=== PATIENT | male | born 1945 | race Caucasian/White ===

== ENCOUNTER 2020-02-22 20:44 | Inpatient (IN) ==
[2020-02-22] MEDS ORDERED: CARDIZEM IV ONE ×2 (21:04→21:27)
[2020-02-22] MEDS ORDERED: CARDIZEM ONE (21:08)
[2020-02-22 21:20] LABS: BASO# 0.09 X1000 (0.0-0.2); BASO% 0.7 % (0.0-0.8); EOS# 0.01 X1000 (0.0-0.7); EOS% 0.1 % (0.0-10.0); HEMATOCRIT 32.5 % (42.0-52.0); HEMOGLOBIN 9.6 g/dL (14.0-18.0); IMM GRAN# 0.13 X1000 (0.0-0.04); LYMPH# 1.55 X1000 (1.2-3.4); LYMPH% 11.7 % (20.5-51.1); MCH 28.2 PG (27-31); MCHC 29.5 g/dL (33-37); MCV 95.6 FL (81-99); MONO# 1.57 X1000 (0.11-0.59); MONO% 11.8 % (1.7-9.3); NEUT# 9.94 X1000 (1.4-6.5); NEUT% 74.7 % (42.2-75.2); PLT 346 X1000 (130-400); RDW 18.3 % (11.5-14.5); WBC 13.29 X1000 (4.8-10.8)
--- NOTE | 2020-02-22 21:36 | Diag Imaging Result Doc PS360 ---
EXAM: CHEST-PORTABLE - 02/22/2020 HISTORY: SOB TECHNIQUE: Portable chest COMPARISON: 06/12/2016 FINDINGS: Heart size is normal. There are bilateral interstitial opacities. These may relate to inflammatory interstitial infiltrates or possibly progressive interstitial fibrosis. There is subsegmental atelectasis at left base. There is a possible tiny left pleural effusion. There is no evidence of pneumothorax. IMPRESSION: Bilateral interstitial opacities. These may relate to inflammatory interstitial infiltrates or possibly to progressive pulmonary fibrosis. Electronically signed by Amor Doll 02/22/2020 9:34 PM
[2020-02-22] MEDS ORDERED: NS 1,000 ML IV ONE (22:55)
[2020-02-22] MEDS ORDERED: ZOSYN 3.375 GM in NS 50 ML IV ONE (22:56)
[2020-02-22] MEDS ORDERED: VANCOMYCIN 1 GM/NS 1 GM/250 ML IVPB IV ONE (22:56)
[2020-02-22 23:32] LABS: CREATININE 1.2 mg/dL (0.7-1.2); POTASSIUM 4.4 mmol/L (3.5-5.1)
[2020-02-22] MEDS ORDERED: ASPIRIN PO ONE (23:43)
[2020-02-22] MEDS ORDERED: LASIX IV ONE (23:43)
[2020-02-23] MEDS ORDERED: ASPIRIN PO ONE (00:05)
[2020-02-23] MEDS ORDERED: CARDIZEM PO ONE (00:06)
--- NOTE | 2020-02-23 00:07 | PROVIDER DOCUMENTATION ---
This chart was entered by Aldo Pinedo Scribe, acting as scribe for Melody Langley MD. HPI-Respiratory General - General Chief Complaint: Shortness of Breath Stated Complaint: SOB Time Seen by Provider: 02/22/20 20:58 Source: patient Unable to obtain history due to:: urgency Allergies/Adverse Reactions: Patient Allergies Allergy/AdvReac Type Severity Reaction Status Date / Time morphine Allergy NAUSEA/VOMI Verified 02/22/20 22:26 TING Home Medications: Home Medication List Medication Instructions Recorded Confirmed Last Taken Type LISINOpril [Prinivil] 40 mg PO DAILY 02/09/15 06/12/16 06/12/16 History PRAVAstatin [Pravachol] 20 mg PO DAILY 02/09/15 06/12/16 06/12/16 History Digoxin [Lanoxin] 125 microgm PO DAILY #90 tablet 03/16/16 06/12/16 06/12/16 Rx Alprazolam [Xanax] 0.5 mg PO TID PRN PRN 05/12/16 06/12/16 06/12/16 History Hydrocodone/Acetaminophen [Lorcet 1 tab PO TID PRN 05/12/16 06/12/16 1 Week Ago History Plus 7.5-325 mg Tablet] ~06/05/16 Megestrol Acetate 40 mg PO TID 05/12/16 06/12/16 06/12/16 History Citalopram [Celexa] 20 mg PO DAILY 06/12/16 06/12/16 06/12/16 History Diltiazem [Cardizem] 30 mg PO TID 06/12/16 06/12/16 06/12/16 History Ondansetron HCl [Zofran] 4 mg PO 4XDAY PRN PRN 06/12/16 06/12/16 06/11/16 History Mirtazapine [Remeron] 7.5 mg PO QHS #30 tablet 06/14/16 Unknown Rx - History of Present Illness-Resp Nature of Presenting Problem: Pt is a 74 y/o M comes to the ED with SOB. When asked how long he has been SOB he states "for years". Pt O2 SAT once is the room was low 40's. He reports, in between breaths, he has no hx. A Report is pt came to the ED by an ICU nurse from a near [facility] and told the pt was discharge yesterday from a Hospital in [place]. When asking the pt he has no clue why he was in the hospital. History very limited by acuity of patient's condition Severity in ED: reports: severe Onset/Duration: reports: unsure Review of Systems - Adult - REVIEW OF SYSTEMS - ADULT ROS:: limited per condition Constitutional: denies: chills, fever Respiratory: reports: shortness of breath Past History - Adult - PAST MEDICAL HISTORY-ADULT Review of Records: reports: Old Records Reviewed, Nursing Assessment Review, Medications Reviewed, Social history reviewed & non-contributory. Major Childhood Illnesses: reports: denies history Cardiovascular: reports: CAD Respiratory: reports: denies history Gastrointestinal: reports: ulcer Genitourinary: reports: denies history Musculoskeletal: reports: neck/back injury Neurological: reports: denies history Endocrine/Immune: reports: denies history Other Conditions: reports: denies history - PRIOR SURGERIES/PROCEDURES Surgical/Procedure History: reports: cholecystectomy, bowel surgery, orthopedic (extremity), back/neck (x9), gastric bypass - IMMUNIZATION STATUS Childhood Immunizations: See Nurse Assessment Flu Vaccine: See Nurse Assessment - FAMILY HISTORY Family History: reviewed, not pertinent Physical Exam-General - PHYSICAL EXAM-ADULT Initial Vital Signs Reviewed: Yes - CONSTITUTIONAL General Appearance: alert (Pt is confused), severe distress, thin. negative: appears well (Pt working to breathe) - EYES Eyes: PERRL/EOMI, pink conjunctivae - HEAD, EARS, NOSE, MOUTH & THROAT HENMT: moist mucous membranes. negative: angioedema - NECK Neck: non-tender, full range of motion - RESPIRATORY Respiratory: respiratory distress, decreased breath sounds, accessory muscle use , increased rate, other (Pt intial O2 SAT was in the low 40's on a NC and after switching to a nonrebreather improves to the mid 90's) - CARDIOVASCULAR Cardiovascular: no edema, tachycardia - GASTROINTESTINAL (ABDOMEN) Abdominal Exam: soft, hernia (large umbilical), other (well healed sugrical scar) - MUSCULOSKELETAL Extremity: no pedal edema, pelvis stable. negative: deformity, erythema - SKIN Integumentary: normal color, normal turgor, warm/dry - NEUROLOGIC Neurologic: grossly normal, no motor/sensory deficits - PSYCHIATRIC Psych/Mental Status: normal mood/affect, oriented x 3. negative: normal thought content (mildly confused) Progress - PLAN OF CARE/RESULTS Progress/Plan/Lab Results: Vital Signs - 8 hr 02/22/20 21:05 02/22/20 21:56 02/22/20 23:14 Temperature 98.7 F Pulse Rate 122 H 97 H 107 H Respiratory Rate 20 25 H 22 Blood Pressure 106/58 112/70 107/77 O2 Sat by Pulse Oximetry 42 L 97 95 02/22/20 21:48 Influenza Screen - Final Nasopharyngeal Laboratory Results - last 24 hr 02/22/20 02/22/20 02/22/20 21:06 21:06 21:06 WBC 13.29 H RBC 3.40 L Hgb 9.6 L Hct 32.5 L MCV 95.6 MCH 28.2 MCHC 29.5 L RDW Std Deviation 18.3 H Plt Count 346 MPV 11.0 H Immature Gran % (Auto) 1.0 H Neut % (Auto) 74.7 Lymph % (Auto) 11.7 L [place] % (Auto) 11.8 H Eos % (Auto) 0.1 Baso % (Auto) 0.7 Immature Gran # (Auto) 0.13 H Neut # (Auto) 9.94 H Lymph # (Auto) 1.55 [place] # (Auto) 1.57 H Eos # (Auto) 0.01 Baso # (Auto) 0.09 Sodium Potassium Chloride Carbon Dioxide Anion Gap BUN Creatinine Estimated GFR/1.73 m2 BUN/Creatinine Ratio Glucose Calculated Osmolality Calcium Troponin T High Sens 40 H Lxk-N-Tvutmweohfx Pept 2466 H Plasma Lactate 02/22/20 02/22/20 21:06 21:58 WBC RBC Hgb Hct MCV MCH MCHC RDW Std Deviation Plt Count MPV Immature Gran % (Auto) Neut % (Auto) Lymph % (Auto) [place] % (Auto) Eos % (Auto) Baso % (Auto) Immature Gran # (Auto) Neut # (Auto) Lymph # (Auto) [place] # (Auto) Eos # (Auto) Baso # (Auto) Sodium 141 Potassium 4.4 Chloride 105 Carbon Dioxide 14 L Anion Gap 22 BUN 24 H Creatinine 1.2 Estimated GFR/1.73 m2 59 BUN/Creatinine Ratio 20 Glucose 185 H Calculated Osmolality 290 Calcium 9.0 Troponin T High Sens Xkh-C-Vvzhbgeshtj Pept Plasma Lactate 1.6 Orders Category Date Time Status NEWS Score >or=5:Order NEWS Bundle S.O. NOW Care 02/22/20 21:47 Active cxr [CHEST-PORTABLE] [RAD] Stat Exams 02/22/20 21:01 Completed BLOOD CULTURE [BLDCUL] Stat Lab 02/22/20 23:15 Received BMP [BASIC METABOLIC PANEL] [CHEM] Stat Lab 02/22/20 21:06 Completed BNP [PRO B-NATRIURETIC PEPTIDE] Stat Lab 02/22/20 21:06 Completed CBC WITH ELECTRONIC DIFF [HEME] Stat Lab 02/22/20 21:06 Completed INFLUENZA SCREEN A/B Stat Lab 02/22/20 21:48 Completed LACTATE, PLASMA [CHEM] Stat Lab 02/22/20 21:58 Completed MISCELLANEOUS TEST-LAB [RF] Stat Lab 02/22/20 21:16 Uncollected TROPONIN T HIGH SENSITIVITY Stat Lab 02/22/20 21:06 Completed 0.9% Sodium Chloride Inj [Ns] 1,000 ml Med 02/22/20 22:55 Discontinued IV 999 mls/hr Aspirin Med 02/22/20 23:43 Discontinued 325 mg PO NOW ONE Diltiazem [Cardizem] Med 02/22/20 21:04 Discontinued 10 mg IV NOW ONE Diltiazem [Cardizem] Med 02/22/20 21:27 Discontinued 20 mg IV NOW ONE Diltiazem [Cardizem] Med 02/22/20 21:08 Discontinued 25 mg .ROUTE .STK-MED ONE Furosemide [Lasix] Med 02/22/20 23:43 Discontinued 40 mg IV NOW ONE Piperacillin/Tazobactam [Zosyn] 3.375 gm Med 02/22/20 22:56 Discontinued 0.9% Sodium Chloride Inj [Ns] 50 ml IV NOW Vancomycin 1 gm/Ns Med 02/22/20 22:56 Discontinued 1 gm in 250 ml IV NOW EKG [EKG] Stat Ther 02/22/20 20:59 Ordered dyspena with marked hypoxia and increased work of breathing. Improved with 100% oxygen by NRB. A-flutter with RVR on monitor will treat and will further evaluate for causes including but not limited to chf, pna, covid-19, acs. Result Diagrams: 02/22/20 21:06 02/22/20 21:06 - REASSESSMENT Reassessment #1 Status: improving (tachycardia and dyspnea improving, HR 100, elevated troponin and BNP and diffuse pulmonary edema with scattered infiltrates on CXR. Treated with vanco, zosyn, aspirin, and lasix. Records from [place] reviewed and pt was admitted with pna and chf, had 1 negative covid-19 test. Will admit. Discussed case with Dr. Lynne, hospitalist who will see and admit pt.) - EKG 1 Time of EKG reading by physician:: 21:02 EKG Read and Signed by:: Melody Langley EKG Interpretation (*Must complete 3 of following elements*): Abnormal Rate: 122 Rhythm: Atrial flutter with variable AV block Comments: Nonspecific T wave abnormality Departure - Departure Date of Disposition Decision: 02/23/20 Time of Disposition Decision: 00:04 DIAGNOSIS: Elevated troponin CHF exacerbation Qualifiers: Heart failure type: unspecified Qualified Code(s): I50.9 - Heart failure, unspecified Pneumonia Qualifiers: Pneumonia type: due to unspecified organism Laterality: unspecified laterality Lung location: unspecified part of lung Qualified Code(s): J18.9 - Pneumonia, unspecified organism Disposition: ADMITTED INPATIENT 09 Certified Medical Emergency: Emergent Condition: Fair - Critical Care Note This patient required my direct & personal management of CC.: Yes Total Time (mins): 30 Critical Care Statement: This patient required my direct personal management to treat or rule out processes, the absence of which, could potentiallly result in sudden, clinically significant life or limb threatening deterioration. Attestation - Physician/ BENJIE Attestation Patient care was provided by Advanced Practice Provider:: No The physician spent face to face time with patient:: Yes Advanced Practice Provider documentation review:: Supervising physician onsite and consulted in the evaluation and care of this patient. The physician did have a face to face encounter with the patient. This chart was documented by the indicated scribe, (Aldo Pinedo Scribe) and accurately reflects the services I performed and decisions made by , Melody Langley MD, as attested by the provider's signature.
[2020-02-23] MEDS ORDERED: LANOXIN IV ONE (00:20)
[2020-02-23] MEDS ORDERED: VANCOMYCIN IV PER PHARMACY MISC SCH (01:00)
[2020-02-23 01:25] LABS: URINE SOURCE CATH
[2020-02-23] MEDS: DEMEROL IV PRN ×4 (01:28→13:45)
[2020-02-23 01:40] LABS: BILIRUBIN URINE NEGATIVE (NEGATIVE); BLOOD URINE TRACE (NEGATIVE); COLOR STRAW; GLUCOSE URINE NEGATIVE (NEGATIVE); KETONE URINE NEGATIVE (NEGATIVE); LEUKOCYTES URINE NEGATIVE (NEGATIVE); NITRITE URINE NEGATIVE (NEGATIVE); PROTEIN URINE NEGATIVE (NEGATIVE); SP GRAVITY URINE 1.008; TURBIDITY URINE CLEAR (CLEAR); UR EPITHELIAL CELLS <10 /HPF (<10); URINE BACTERIA NEGATIVE /HPF; URINE RBC <10 /HPF (<10); URINE WBC <10 /HPF (<10); UROBILINOGEN URINE NORMAL (NORMAL)
[2020-02-23] MEDS: MAXIPIME 1 GM in NS 50 ML IV SCH ×2 (02:42→13:04)
[2020-02-23] MEDS ORDERED: VENTOLIN HFA INH PRN (03:19)
[2020-02-23] MEDS ORDERED: VANCOMYCIN 750 MG in NS 250 ML IV ONE (04:00)
--- NOTE | 2020-02-23 05:23 | HISTORY AND PHYSICAL ---
PRIMARY CARE PROVIDER: Carlos Hyman M.D. CHIEF COMPLAINT: Shortness of breath and umbilical pain. HISTORY OF PRESENT ILLNESS: Mr. Hannah is a 74-year-old male with a past medical history of COPD, ongoing tobacco use, atrial fibrillation, hypertension, dyslipidemia, chronic ulcers and multiple dilatations in the past, who came to the ED complaining of increase in shortness of breath. Initial O2 saturation was in the low 40s. He had improvement of his O2 saturations while placed on a non-rebreather breather, and was noted to be in atrial flutter with RVR. He was just discharged from [facility] on 02/20/2020 after he was admitted for respiratory failure and suspected COVID, which was negative. He also had some pulmonary edema and pneumonitis. He is currently being retested for COVID given a dose of IV Lasix as well as several doses of IV Cardizem and broad-spectrum antibiotics. We will monitor him on PVC. PAST MEDICAL HISTORY: COPD, paroxysmal atrial fibrillation, hypertension dyslipidemia, chronic ulcers, multiple dilatations in the past, and continues to use tobacco. Off of his echo from [place], looks like some grade 1 diastolic dysfunction with an EF of 60%. PAST SURGICAL HISTORY: Hernia repair, dilatation, multiple back surgeries, rotator cuff surgery, enterectomy, vaginotomy and Billroth I. Anastomosis site leak that underwent a revision with Billroth II and a J tube that has been removed. SOCIAL HISTORY: The patient reports that he lives in [facility]. He used to smoke 2 packs of cigarettes per day for many years. Recently, he is down to 5 to 6 cigarettes per day. No alcohol or illicit drug use. FAMILY HISTORY: Reviewed and noncontributory. ALLERGIES: Morphine causes nausea and vomiting. MEDICATIONS: Home medications are being compiled. REVIEW OF SYSTEMS: The patient's main complaint was his hernia pain. It took a lot of coaching to get the reason why he was brought to the hospital, which ultimately was for shortness of breath, but then he said he could no longer take the pain in his abdomen though he did report that the shortness of breath increased last night. He is currently denying any fever, chills, chest pain, shortness of breath, palpitations, nausea, vomiting, or diarrhea. PHYSICAL EXAMINATION: VITAL SIGNS: Temperature 98.7 degrees, heart rate 105, respirations 26, blood pressure 108/73, and O2 is 95% on nonrebreather. GENERAL: Mr. Hannah is a 74-year-old gentleman who is complaining of abdominal pain, sitting up in the bed in no acute distress. HEENT: Atraumatic, normocephalic. PERRL. NECK: Supple. Trachea midline. CARDIOVASCULAR: S1, S2 appreciated. No murmurs, gallops, or rubs noted. RESPIRATORY: Lung sounds with crepitus throughout all lung bates. ABDOMEN: Tender over the ventral hernia. Positive bowel sounds. SKIN: Warm, dry and intact. NEUROLOGIC: No focal deficits noted. DIAGNOSTIC DATA: Chest x-ray shows bilateral interstitial opacities that may relate to inflammatory interstitial infiltrates or possibility to progressive pulmonary fibrosis. EKG showed atrial flutter with RVR, rate of 160s. LABORATORY DATA: CBC: White count is 13, hemoglobin and hematocrit 9.6 and 32.5, and platelet count is 346,000. Chemistries: Sodium 141, potassium 4.4, BUN 24, creatinine 1.2, and blood glucose is 185. Troponin is 40. ProBNP was 2466. Plasma lactate was 1.6. ASSESSMENT AND PLAN: 1. Hospital-acquired pneumonia. Patient just was recently discharged from [facility] where he was treated for pneumonitis and ruled out for COVID. We will continue with broad-spectrum antibiotics with vancomycin and cefepime, albuterol inhalers, and aggressive pulmonary toilet. 2. COVID 19 rule out again. Placed in proper isolation precautions. 3. Atrial flutter with rapid ventricular response. The patient's rate is now in the low 100's after a couple doses of IV Cardizem and p.o. Cardizem. 4. Mild diastolic heart failure exacerbation. Patient was given a dose of Lasix. We will do strict intakes and outputs, and daily weights. Recheck an echo in the morning. Consult Cardiology. We will do 2 more doses of IV Lasix at 20 mg. 5. Mild elevation of troponin. Patient is not currently complaining of any chest pain. We will continue to trend with 2 more sets. 6. Acute respiratory failure with hypoxemia noted upon arrival. His O2 saturation was 42 on room air, recovered to 100% on nonrebreather. We do not have any ABGs to correlate with carbon dioxide of 14, and anion gap of 22. 7. COPD. We will continue with supplemental O2. Albuterol inhalers given the patient is being tested for COVID. Continue supplemental O2. 8. Continued tobacco use and abuse. We will continue with smoking cessation and education. 9. Pulmonary fibrosis. It was unclear if the patient had a lead front desk agent that he followed. 10 Ventral hernia. The patient was complaining of pain. It was easily reducible. We can have him follow up with General Surgery or consult when the patient is more stable. 11. Further recommendation to follow physician evaluation, laboratory and diagnostic data. Dictated by DENNY Black for Geremias Lynne MD cc: MD Carlos Serna MD MTDGarcia
[2020-02-23] MEDS: VENTOLIN HFA INH SCH ×4 (06:01→21:26)
[2020-02-23 06:32] LABS: AGAP 19; ALB/GLOB RATIO 0.8; ALBUMIN 2.8 g/dL (3.5-5.0); ALKALINE PHOSPHATASE 132 U/L (32-122); BUN 21 mg/dL (8-22); CALCIUM 8.2 mg/dL (8.8-10.2); CHLORIDE 107 mmol/L (98-107); COSMO 292; CREATININE 0.9 mg/dL (0.7-1.2); ESTIMATED GFR > 60; GLUCOSE 113 mg/dL (70-104); GOT 26 U/L (10-34); GPT 14 U/L (10-44); INR 1.98; MAGNESIUM 1.8 mg/dL (1.5-2.7); POTASSIUM 3.8 mmol/L (3.5-5.1); SODIUM 145 mmol/L (136-145); TCO2 19 mmol/L (25-35); TOTAL BILIRUBIN 0.34 mg/dL (0.20-1.00); TOTAL PROTEIN 6.5 g/dL (6.3-8.3)
[2020-02-23 06:33] LABS: PTT 53.7 Seconds (22.3-41.8)
[2020-02-23 06:42] LABS: BASO# 0.03 X1000 (0.0-0.2); BASO% 0.2 % (0.0-0.8); EOS# 0.01 X1000 (0.0-0.7); EOS% 0.1 % (0.0-10.0); HEMATOCRIT 30.5 % (42.0-52.0); HEMOGLOBIN 9.5 g/dL (14.0-18.0); LYMPH# 1.84 X1000 (1.2-3.4); LYMPH% 15.1 % (20.5-51.1); MCH 29.5 PG (27-31); MCHC 31.1 g/dL (33-37); MCV 94.7 FL (81-99); MONO# 1.28 X1000 (0.11-0.59); MONO% 10.5 % (1.7-9.3); MPV 11.5 FL (7.4-10.4); NEUT# 9.04 X1000 (1.4-6.5); NEUT% 74.1 % (42.2-75.2); PLT 333 X1000 (130-400); RBC 3.22 XMIL (4.7-6.1)
--- NOTE | 2020-02-23 07:52 | EKG Report ---
Test Performed on : 02/23/2020 07:12:18 AM Test Reason : a-flutter Blood Pressure : / mmHG Vent. Rate : 097 BPM Atrial Rate : 337 BPM P-R Int : 000 ms QRS Dur : 084 ms QT Int : 296 ms P-R-T Axes : 000 069 -82 degrees QTc Int : 375 ms Atrial flutter. with variable AV block. with premature ventricular or aberrantly conducted complexes. ST & T wave abnormality, consider inferolateral ischemia Abnormal ECG When compared with ECG of 22-FEB-2020 21:01, (Unconfirmed) T wave inversion now evident in Lateral leads Confirmed by Becca COWART, Calvin Haji ([id number]) on 02/23/2020 9:26:22 AM
--- NOTE | 2020-02-23 07:56 | EKG Report ---
Test Performed on : 02/22/2020 9:01:32 PM Test Reason : SOB Blood Pressure : / mmHG Vent. Rate : 122 BPM Atrial Rate : 315 BPM P-R Int : 000 ms QRS Dur : 090 ms QT Int : 310 ms P-R-T Axes : 000 049 -24 degrees QTc Int : 441 ms Atrial flutter. with variable AV block. Nonspecific T wave abnormality Abnormal ECG Unconfirmed Result
[2020-02-23] MEDS: ELIQUIS PO SCH ×2 (09:07→21:31)
[2020-02-23] MEDS: LANOXIN PO SCH (09:08)
[2020-02-23] MEDS: CARDIZEM CD PO SCH (09:08)
[2020-02-23] MEDS: LASIX IV SCH ×2 (09:08→21:31)
--- NOTE | 2020-02-23 09:54 | CARDIOLOGY CONSULTATION ---
DATE: 02/23/2020 CHIEF COMPLAINT: Shortness of breath. HISTORY OF PRESENT ILLNESS: Mr. Hannah is a 74-year-old, white male with a history of atrial flutter, atrial fibrillation, previously seen by Dr. Garcia in 01/2020. The patient has had frequent hospitalizations, originally hospitalized in December at [facility] for what sounds like pneumonia. Subsequently had a readmission to [place], with discharge just a couple of days ago. Again, this was secondary to pneumonia. The patient was found by his neighbor yesterday, very short of breath. Apparently had not improved since discharge from [place]. He has had productive cough of brownish sputum. He denies any fevers. The patient denies any pain or heart racing. No chest pain. No orthopnea. PAST MEDICAL HISTORY: Significant for: 1. Atrial flutter/paroxysmal atrial fibrillation. Last visit in 01/2020, he was in sinus rhythm per Dr. Garcia. The patient was not on any antiarrhythmics at that time, but was taking diltiazem as well as Eliquis. 2. COPD/pulmonary fibrosis with previous tobacco use. 3. Hypertension. 4. Hyperlipidemia. 5. Gastric ulcers. 6. Chronic pain. SOCIAL HISTORY: He used to smoke 2 packs per day for many years, and currently smokes around 5 to 6 cigarettes per day. FAMILY HISTORY: Hypertension. REVIEW OF SYSTEMS: A 10-system review of systems is negative, except for those mentioned in the HPI. PHYSICAL EXAMINATION: Vital Signs: He is afebrile, heart rates are in the 80s to low 100s, blood pressure 121/67, he is on 94% with a nonrebreather. General: He is in no acute distress. HEENT: Oropharynx is moist. Poor dentition. Eye examination shows pink conjunctivae, white sclerae. Neck: No obvious thyromegaly or thyroid tenderness. Cardiovascular: He sounds to be in an irregularly irregular rhythm. Monitor currently shows atrial fibrillation. He has no lower extremity edema. He has warm and well-perfused extremities. Chest: Coarse breath sounds diffusely. No increased work of breathing. Abdomen: Soft, nontender, nondistended. No obvious organomegaly. Skin: Warm and dry throughout without any rashes. Neurological: He is moving all extremities well. He has no lateralizing deficits. PERTINENT DATA: His original EKG on 02/22/2020 at 2101 shows what appears to be atrial flutter, variable conduction, rate of 122 beats per minute, no ischemic changes. His subsequent EKG occurring on 02/23/2020 at 7:12 shows atrial flutter, rate of 97 beats per minute. He had a chest x-ray performed that demonstrates bilateral interstitial opacities, possible inflammatory infiltrates versus pulmonary fibrosis. His lab data shows white count 12.2, hematocrit 30, his platelet count is 333,000. His INR is 1.98. His sodium is 145, potassium 3.8, his BUN is 21, creatinine 0.9. His proBNP was 2466 on presentation, 4147 today. His troponin was 40, today it is 30. Urinalysis was reviewed. His lactate was 1.6. ASSESSMENT: Mr. Hannah is a 74-year-old gentleman who presented with respiratory failure, most likely pneumonia, found to be in atrial flutter. PLAN: At this point, I agree with rate control. Continue on Eliquis. We will manage him for now with rate control, and may pursue caodaism of sinus rhythm in the near future. I would not do that currently given his respiratory issues. He is currently on diuretics, which I agree with. I would not re-echo the patient given that he had a normal echocardiogram as far as his ejection fraction just a few days ago in [place]. I do not believe repeating that study presently is indicated. cc: Andre Molina MD [facility]
[2020-02-23 11:09] LABS: T4 7.79 ug/dL (4.60-12.00); TSH 1.15 uIUmL (0.27-4.20)
[2020-02-23] MEDS ORDERED: OFIRMEV 1000 MG/ISOTONIC SOLN 1,000 MG/100 ML BOTTLE IV PRN (12:01)
--- NOTE | 2020-02-23 13:33 | PROGRESS NOTE ---
DATE: 02/23/2020 SUBJECTIVE: I have seen and examined Mr. Hannah today. Mr. Hannah is a 74-year-old gentleman who was admitted early this morning because of hypoxemia I understand. He tells me that he was having difficulty breathing. He could not get his breath and I understand upon arrival, his O2 saturation was 42%. He was place on a non-rebreather and that has significantly improved his saturation. This morning, he refers to be doing well. He is more concerned about pains in his abdomen. Upon presentation, he was also found to be in atrial flutter with variable blocks. Cardiology has evaluated him today. OBJECTIVELY: Current Vital Signs: Blood pressure 108/64, pulse of 95, respirations 28, temperature is 98.3 degrees. General: Mr. Hannah is a 74-year-old elderly male. He is in bed, no distress. HEENT: Mucosa is pink and moist. Anicteric. Acyanotic. Neck: Neck is supple. There is no JVD. Chest: Air entry was bilaterally reduced. There was some fine end inspiratory crackles, but no rhonchi. Cardiovascular: Regular rate and rhythm. No murmurs, no rubs, no gallops. GI: Abdomen soft. There is an old midline surgical scar with hernia. There is some tenderness palpating the hernia at the site, but it is very reducible. Bowel sounds are present. Extremities: No pedal edema. GEAR ROOM KEEPER: Patient is awake, alert, oriented. There is no focal deficit. LABORATORY DATA: WBC is 12.20, hemoglobin of 9.5, platelet count of 333. Chemistry is also reviewed and is completely unremarkable. The patient's Pro-BNP is 447. IMAGING STUDIES: Chest x-ray did show bilateral interstitial opacities. This may be inflammatory interstitial infiltrate or possible progression of pulmonary fibrosis. ASSESSMENT: 1. Acute hypoxemic respiratory failure. The patient is on a non-rebreather, currently O2 saturation has improved. We are going to continue monitoring. His hypoxemia could be due to chronic obstructive pulmonary disease exacerbation versus pneumonia vs pulmonary fibrosis. 2. Bilateral multifocal infiltrate concerning for pneumonia versus pulmonary fibrosis. The patient is on IV antibiotics. 3. Atrial flutter with variable conduction in rapid ventricular response. The patient is on Cardizem. Currently looks like the rate is better controlled. Has been evaluated by cardiology. 4. History of chronic obstructive pulmonary disease with chronic hypoxemia on supplemental home oxygen. 5. Ongoing tobacco use and abuse. Patient has been counseled. 6. Mid epigastric incisional hernia noted. 7. Elevated Pro-BNP concerning for tachyarrhythmia-induced heart failure most likely with preserved ejection fraction. Cardiology is on board. At this point, we are going to continue with the rate control strategy that has been instituted. PLAN: In general, I think Mr. Hannah is doing a lot better. He is currently more concerned about his abdominal discomfort and more pain medicine. Apparently, he follows up with Dr. Oviedo at his pain clinic. We will continue with the current antimicrobial therapy, antibiotics, diuretics, rate control strategy, and anticoagulation. I have added also p.o. prednisone for the possible chronic obstructive pulmonary disease exacerbation. cc: Andrey Paniagua MD [facility]
[2020-02-23] MEDS ORDERED: NORCO-7.5 PO PRN ×2 (17:23→17:26)
[2020-02-23] MEDS ORDERED: BLISTEX MEDICATED BERRY LIP BALM TOP PRN (22:00)
[2020-02-23] MEDS ORDERED: XANAX PO ONE (22:18)
[2020-02-24] MEDS: NORCO-7.5 PO PRN ×2 (02:11→08:14)
[2020-02-24] MEDS: MAXIPIME 1 GM in NS 50 ML IV SCH ×2 (02:11→15:39)
[2020-02-24] MEDS: VENTOLIN HFA INH SCH ×4 (03:26→21:00)
[2020-02-24] MEDS: VANCOMYCIN 1 GM/NS 1 GM/250 ML IVPB IV SCH (05:44)
[2020-02-24 06:01] LABS: HEMATOCRIT 35.8 % (42.0-52.0); MCH 28.4 PG (27-31); MCHC 30.7 g/dL (33-37); MCV 92.5 FL (81-99); MPV 11.3 FL (7.4-10.4); RBC 3.87 XMIL (4.7-6.1); RDW 17.7 % (11.5-14.5); WBC 13.76 X1000 (4.8-10.8)
[2020-02-24 06:22] LABS: AGAP 15; BUN 24 mg/dL (8-22); CALCIUM 8.9 mg/dL (8.8-10.2); CHLORIDE 100 mmol/L (98-107); COSMO 286; CREATININE 0.9 mg/dL (0.7-1.2); ESTIMATED GFR > 60; GLUCOSE 107 mg/dL (70-104); PHOSPHORUS 2.6 mg/dL (2.7-4.5); POTASSIUM 3.1 mmol/L (3.5-5.1); SODIUM 141 mmol/L (136-145); TCO2 26 mmol/L (25-35)
--- NOTE | 2020-02-24 06:41 | Diag Imaging Result Doc PS360 ---
EXAM: CHEST-PORTABLE HISTORY: dyspnea TECHNIQUE: Single view COMPARISON: 02/22/2020 FINDINGS: There are diffuse bilateral infiltrates. No cardiomegaly. Questionable tiny left effusion. The overall appearance is similar to the prior exam. IMPRESSION: Stable chest Electronically signed by Manav Allen 02/24/2020 6:38 AM
[2020-02-24] MEDS ORDERED: LASIX IV ONE (07:50)
[2020-02-24] MEDS ORDERED: LEVSIN-SL SL PRN (07:52)
[2020-02-24] MEDS: KLOR-CON PO SCH ×2 (07:55→11:33)
[2020-02-24] MEDS: BUSPAR PO SCH ×2 (07:55→08:29)
[2020-02-24] MEDS: CARDIZEM CD PO SCH ×2 (07:55→08:29)
[2020-02-24] MEDS: NEURONTIN PO SCH ×2 (07:56→08:30)
[2020-02-24] MEDS: ELIQUIS PO SCH ×3 (07:56→21:34)
[2020-02-24] MEDS: LANOXIN PO SCH ×2 (07:56→08:30)
[2020-02-24] MEDS: LEXAPRO PO SCH ×2 (07:56→08:30)
[2020-02-24] MEDS: POTASSIUM CHLORIDE 20 MEQ/SWI 20 MEQ/100 ML IVPB IV SCH ×2 (07:57→09:24)
--- NOTE | 2020-02-24 08:40 | PROGRESS NOTE ---
DATE: 02/24/2020 INTERVAL HISTORY: Mr. Hannah remained tachycardic with heart rate of 102, and he remained hypoxic overnight despite being -1.8 L. His hypokalemia is currently being repleted. He appeared anxious in the morning time. No other acute overnight events. SUBJECTIVE: Mr. Hannah is anxious and says he is feeling significantly weak and that he needs IV fluids. He denies any chest pain. He is feeling short of breath. He is occasionally coughing. He denies any nausea or vomiting. REVIEW OF SYSTEMS: Positive for dysphagia. Positive for abdominal cramps. Positive for weakness. OBJECTIVE: Vital Signs: Currently, temperature 98.4 degrees, pulse 110, respiratory rate 24, blood pressure 129/85, he is saturating 100% on nonrebreather mask. General: In distress because of shortness of breath. HEENT: Oral cavity is moist. Lungs: He has diminished air entry, bilateral inframammary region, as well as infra-axillary region, with inspiratory crackles. No wheezes. Cardiovascular: S1, S2 normal. Irregularly irregular. No murmur, rub, or gallop. Abdomen: Soft, nontender. He has a laparotomy scar of previous abdominal surgery. : He has urine catheter. Extremities: No lower extremity edema. Neurologic: He is alert. He is oriented x3. LABORATORY DATA: WBC 13.7, hemoglobin 11, platelets 392,000. Potassium 3.1, BUN 24, creatinine 0.9. Phosphorus 2.6, magnesium 1.9. His proBNP has elevated to 4600. MICROBIOLOGY: No new positive data. IMAGING: Chest x-ray suggests that he continues to have bilateral lung infiltrate. MEDICATIONS: He is on acetaminophen, hydrocodone, albuterol sulfate inhaler, apixaban, buspirone, cefepime, digoxin, diltiazem, Lexapro, gabapentin, Levsin, vancomycin, and potassium. ASSESSMENT AND PLAN: 1. Acute hypoxic respiratory failure due to bilateral lung infiltrate, likely a combination of pulmonary fibrosis, chronic obstructive pulmonary disease, superimposed with pneumonia. There could also be a component of acute pulmonary edema. Continue inhaled albuterol, intravenous vancomycin, intravenous cefepime. Add intravenous Lasix. Follow up chest x- ray in the future as necessary. I will consult Pulmonology for further recommendation. He is on 100% nonrebreather right now, and his respiratory status appears tenuous. He was counseled about smoking cessation. Follow up COVID results. 2. Atrial flutter with variable atrioventricular block. Currently, heart rate is reasonably controlled on diltiazem, digoxin, and Eliquis, which I will continue. His echocardiogram at an outside hospital had an ejection fraction of 60%, though official reports are pending. Appreciate Cardiology's recommendation. 3. Sepsis due to bilateral lung multifocal pneumonia. Continue intravenous antibiotics as above. 4. Others. Continue buspirone and Lexapro for anxiety; gabapentin for chronic neuropathic pain; replete hypokalemia and hypomagnesemia as necessary. 5. Disposition. Mr. Hannah's condition is critical. 35 minutes of critical care time was spent taking care of this patient. I had a discussion with him about his critical condition, including suspected pulmonary fibrosis, which could be irreversible, high oxygen requirements. I asked him about his future wishes, and he explicitly mentioned that he would not want any chest compressions or intubations, so his code status is DO NOT RESUSCITATE level 1. I will consult Palliative Care for further goals of care discussion. I tried to reach out to his and sister, whose contacts are listed in the computer. However, they did not sweet pickle maker, and there was no option to leave a voice message. I will continue to try and reach out to them in the future. cc: MD SUZANNE Kunz
[2020-02-24] MEDS ORDERED: BUSPAR PO SCH (09:00)
[2020-02-24] MEDS ORDERED: NEURONTIN PO SCH (09:00)
--- NOTE | 2020-02-24 11:30 | PROGRESS NOTE ---
DATE: 02/24/2020 SUBJECTIVE: Mr. Hannah had expressed to the nurse that he wanted to go home on hospice. Palliative Care team has been consulted and is currently working on setting that up. I think Mr. Hannah has had repeated hospitalizations recently and appears to have pulmonary fibrosis. He received intravenous Lasix with negative almost 2 L of urine yesterday. Despite that, his oxygen need did not improve and he remained on 100% non-rebreather mask. cc: Adan Gonzalez MD
[2020-02-24] MEDS ORDERED: DILAUDID ONE (12:05)
[2020-02-24] MEDS: DILAUDID IV PRN ×3 (12:10→23:34)
--- NOTE | 2020-02-24 13:11 | CARDIOLOGY PROGRESS NOTE ---
DATE: 02/24/2020 SUBJECTIVE: Mr. Hannah is weak today, continues to be short of breath. There have been discussions that he has had today regarding wanting to go home on hospice. He still on respiratory isolation. PHYSICAL EXAMINATION: The patient is afebrile. His heart rate is in the 90s to low 100s. Blood pressure 117/81. General: He is in no acute distress. Cardiovascular: He is in an irregularly irregular rhythm. He has no murmurs. He has no lower extremity edema. His chest exam has coarse breath sounds diffusely, poor inspiratory effort. His abdomen is soft, nontender. PERTINENT DATA: White count 13.7, hematocrit 36. Sodium 141, potassium is 3.1, BUN 24, creatinine 0.9. His proBNP is 4603, which is relatively stable from yesterday. His Is and Os notably have been negative around 3 L for the course of the hospitalization. ASSESSMENT: Mr. Hannah is a 74-year-old gentleman who came in with respiratory failure. Currently under respiratory isolation, awaiting Covid results. He is in atrial flutter. PLAN: His chest x-ray was reviewed by me. Comparison study from the th to today's exam shows essentially no change. He has been around 3 L negative during the course of the hospitalization. He is continuing on diuretics. His renal function has remained stable. He is on apixaban for his atrial fibrillation/flutter. His rate seems reasonably controlled. I do not have any acute recommendations. cc: Andre Molina MD
[2020-02-24] MEDS ORDERED: ATIVAN IV PRN (15:12)
[2020-02-24] MEDS: CARDIZEM PO SCH ×2 (15:39→21:34)
[2020-02-24] MEDS: LASIX IV SCH (16:21)
[2020-02-25] MEDS: CARDIZEM PO SCH ×2 (02:07→08:28)
[2020-02-25] MEDS: MAXIPIME 1 GM in NS 50 ML IV SCH ×2 (02:07→14:03)
[2020-02-25] MEDS: NORCO-7.5 PO PRN (02:08)
[2020-02-25] MEDS: VENTOLIN HFA INH SCH ×2 (03:40→09:41)
[2020-02-25] MEDS: DILAUDID IV PRN ×3 (04:42→12:26)
[2020-02-25] MEDS: VANCOMYCIN 1 GM/NS 1 GM/250 ML IVPB IV SCH (05:00)
[2020-02-25] MEDS: LASIX IV SCH (05:01)
[2020-02-25] MEDS: BUSPAR PO SCH (08:28)
[2020-02-25] MEDS: ELIQUIS PO SCH (08:28)
[2020-02-25] MEDS: LANOXIN PO SCH (08:28)
[2020-02-25] MEDS: LEXAPRO PO SCH (08:29)
[2020-02-25] MEDS: NEURONTIN PO SCH (08:29)
--- NOTE | 2020-02-25 09:31 | ECHO REPORT ---
ORDER DATE: 02/23/2020 MEASUREMENTS: Septal thickness 1.1, left ventricular internal diameter in diastole 4.1, posterior wall thickness 0.8, left ventricular internal diameter in systole 3. [, aortic root 3.6, left atrium 3.7. SUMMARY: 1. Technically difficult study due to limited acoustic window quality. 2. Aortic valve appears to be trileaflet with sclerotic changes of noncoronary cusp but adequate aortic valve opening evident. The peak gradient across the aortic valve is less than 10 mmHg. Mitral and tricuspid valves are without evidence of structural abnormality, while pulmonic valve is not well demonstrated. There is mild tricuspid regurgitation. The estimated systolic PA pressure by Doppler is 40 to 45 mmHg, suggesting mild pulmonary hypertension. The aortic root is normal in size. 3. Normal left ventricular dimensions demonstrated. The estimated left ventricular ejection fraction is approximately 65%. No regional wall motion abnormality can be appreciated. Left atrium, right atrium, and right ventricle are normal in size with grossly preserved right ventricular systolic function. 4. No pericardial effusion. 5. Inferior vena cava not well demonstrated. CONCLUSIONS: 1. Technically difficult study. 2. Aortic valve sclerosis without stenosis. 3. Mild tricuspid regurgitation with mild pulmonary hypertension by Doppler. 4. Estimated left ventricular ejection fraction is 65% without regional wall motion abnormality appreciated. cc: Saeed Garcia MD MTDD
[2020-02-25] MEDS ORDERED: PREDNISONE PO ONE (10:49)
[2020-02-25 12:36] VITALS: BP 118/67
[2020-02-25] MEDS ORDERED: POTASSIUM CHLORIDE 20% LIQUID PO ONE (13:28)
--- NOTE | 2020-02-25 14:55 | CARDIOLOGY PROGRESS NOTE ---
DATE: 02/25/2020 SUBJECTIVE: Mr. Hannah reports no troubles today. It appears he has been moving towards hospice care. He has very little appetite. PHYSICAL EXAMINATION: Afebrile. His heart rates have been controlled, predominantly in the 80s to 90s. Recently, blood pressure 118/67. General: Somewhat cachectic, ill-appearing, white male. Very weak. No acute distress. Cardiovascular: He sounds to be in an irregularly irregular rhythm. His most recent telemetry has shown what appears to be a rate-controlled atrial flutter. He has no lower extremity edema. His chest exam is relatively clear with some upper airway noise. Poor inspiratory effort. Abdomen is soft, nontender. PERTINENT DATA: He has no chemistry data from today. It appears his potassium was repleted yesterday. No new lab today. ASSESSMENT: Mr. Hannah is a 74-year-old gentleman who presented with pneumonia and atrial flutter. PLAN: At this point, I do not have any acute recommendations. He is being discharged home, it appears on hospice. If that indeed goes through, it would be reasonable to consider stopping the apixaban if family so desires. Otherwise, he has been doing well. He is on diltiazem currently at a dose of 180 mg daily along with digoxin. This seems to be controlling him rate-upton. I will stop his q.6 hour diltiazem as he is on long-acting. No further recommendations. cc: Andre Molina MD
--- NOTE | 2020-02-25 15:15 | DISCHARGE SUMMARY ---
ADMISSION DATE: 02/23/2020 DISCHARGE DATE: 02/25/2020 DISCHARGE DISPOSITION: Home with hospice. DISCHARGE CONDITION: He is hemodynamically stable. He is on nonrebreather mask around 70% FiO2 with maintaining saturation around 92%. He does not appear in any acute distress, but appears drowsy. He denies any chest pain or shortness of breath. He agrees to go ahead with home hospice. He understood that he does have lung disease likely related to long- standing smoking and has had rapid decline with shortness of breath requiring multiple hospitalizations recently. I was not able to reach out to his on the phone today. Noticeably, yesterday, I had tried to reach out to his and sister but without any success. DISCHARGE DIAGNOSES: 1. Acute hypoxic respiratory failure. 2. Bilateral lung infiltrate which is a combination of pulmonary fibrosis, chronic obstructive pulmonary disease superimposed with pneumonia. 3. Acute pulmonary edema. 4. Atrial flutter with variable AV block. 5. Sepsis due to multifocal pneumonia. 6. Anxiety. OTHER DIAGNOSES: 1. Chronic neuropathic pain. 2. Active tobacco abuse with history of chronic obstructive pulmonary disease. 3. Paroxysmal atrial fibrillation. 4. Essential hypertension. 5. Dyslipidemia. 6. History of multiple back surgeries with rotator cuff surgeries. 7. History of antrectomy, vagotomy and Billroth type 1 procedure. CURRENT MEDICATIONS: He is being discharged on: 1. Anoro Ellipta 1 puff inhaled daily. 2. Buspirone 15 mg b.i.d. 3. Celexa 20 mg daily. 4. Diltiazem extended release 120 mg daily. 5. Apixaban 5 mg b.i.d. 6. Lasix 40 mg daily. 7. Gabapentin 300 mg daily. 8. [place] 7.5 mg t.i.d. as needed. 9. Albuterol ipratropium sulfate inhaler every 6 hours. 10. MiraLAX 17 g daily for constipation. 11. Mucinex 600 mg every 12 hours as needed. 12. Pantoprazole 40 mg daily. 13. Pravastatin 20 mg daily. 14. Trazodone 100 mg at nighttime. 15. Alprazolam 0.5 mg t.i.d. as needed. 16. Zofran 4 mg 4 times a day as needed. 17. Mirtazapine 7.5 mg at nighttime. 18. Doxycycline 100 mg b.i.d. 19. Prednisone 40 mg daily, total of 10-day supply. CONSULTATIONS DURING HOSPITAL ADMISSION: Cardiology, Dr. Andre Molina. LABS: At the time of admission and discharge: WBC 13.7, hemoglobin 11, platelet 392,000, BUN 24, creatinine 0.9, potassium 3.1, which was repleted. His proBNP was 4600. His COVID-19 test was negative. MICROBIOLOGY: Blood culture and sputum culture did not have any growth. Influenza screen was negative. IMAGING DURING HOSPITAL ADMISSION: Chest x-ray on February 21 had bilateral interstitial opacities related to inflammatory interstitial infiltrate or possibly progressive pulmonary fibrosis. Chest x-ray on December 26 had a stable chest. Echocardiogram on February 22; it was technically a difficult study. He had aortic valve sclerosis, mild tricuspid regurgitation and pulmonary hypertension with ejection fraction of 65% without regional wall motion abnormality. Electrocardiogram on February 21 had atrial flutter with variable AV block. HOSPITAL COURSE SUMMARY: Mr. Hannah is a 74-year-old man with past medical history of COPD, pulmonary fibrosis, active tobacco abuse, atrial fibrillation, multiple GI surgeries because of bleeding ulcers, came in with complaints of increasing shortness of breath. On arrival, his oxygen saturation was found to be in 40s. He was put on nonrebreather mask and was admitted to ICU for further management as he was also found to be in atrial flutter with rapid ventricular response. Noticeably, he was discharged from [facility] on February 19 where he was admitted for respiratory failure, pneumonitis and pulmonary edema. At that time, COVID-19 test was negative. In [facility], on arrival, he was found to have temperature of 98.7 degrees, pulse was 122, respiratory rate of 25, blood pressure of 106/58, and oxygen saturation of 42%. In ICU, he was treated with inhaled bronchodilators, intravenous antibiotics, intravenous Lasix and Cardiology was consulted for management of atrial fibrillation and flutter. Despite intravenous diuresis and -3.7 L input and output, his condition did not improve and he remained short of breath. There was no change in the chest x-ray despite his diuresis. It was thought that his condition could be related to irreversible lung damage secondary to pulmonary fibrosis related to his active tobacco abuse. Later on, he was started on prednisone. Considering his recurrent hospital admissions and tobacco-related lung disease the patient had made himself do not resuscitate level 1 and he had explicitly mentioned that he did not want chest compressions or intubations. He later on also had wished to go home on home hospice. The palliative care team was involved and the plan is to discharge the patient home on hospice. I will give patient a short course of antibiotics, steroids and hospice team would take over. 25 minutes were spent discharging this patient. I again tried to reach out multiple family members without any success. Palliative Care has been talking with the family, though. cc: Adan Gonzalez MD MTDD
[2020-02-26] MEDS ORDERED: PREDNISONE PO SCH (09:00)
[2020-02-26] MEDS ORDERED: CARDIZEM CD PO SCH (09:00)
== END 2020-02-25 15:14 | disposition hospice, home (50) | DRG 871 ==
LOC: ED 20:44 → ICU 02-23 01:53 → SUATTDRO 02-23 01:53 → 2N 02-24 13:19
PROVIDERS: ATTEND Internal Medicine